=== PATIENT | female | born 1975 | race Caucasian/White ===

== ENCOUNTER 2018-04-29 18:32 | Observation (INO) | payer OTHER, SELFPAY ==
[2018-04-29 18:33] VITALS: BP 149/79; PULSE 85; RESP 18; TEMP 37.2; O2SAT 97; BMI 21.1
--- NOTE | 2018-04-29 19:18 | CT_ITS ---
STUDY: CT CHEST WITHOUT CONTRAST REASON FOR EXAM: Female, 43 years old. Left-sided rib pain status post fall. RADIATION DOSAGE (If Supplied By Facility): CTDIvol = ( 6.43 ) mGy, DLP = ( 265.19 ) mGycm TECHNIQUE: Transaxial imaging was performed without the administration of intravenous contrast material. Individualized dose optimization techniques were used for this CT. COMPARISON: None. FINDINGS: Thyroid gland is normal. Unenhanced heart and pericardium are unremarkable. The aorta is normal in caliber. There is no mediastinal mass, adenopathy, or hematoma. There is no pleural effusion or pneumothorax. There is no pulmonary consolidation, interstitial or cystic disease. There is a 4 mm nonobstructing stone in the left kidney. There is a 1 mm nonobstructing stone in the right kidney. Infrarenal IVC filter is noted. Demonstrated abdomen is otherwise unremarkable. There is no evidence of acute fracture. There is partial resection of the left fourth rib posterolaterally, consistent with remote prior thoracotomy. CT/Chest without Contrast IMPRESSION: 1. No acute process. 2. Remote left thoracotomy. 3. Nonobstructing renal stones. Electronically Signed: Bibi Rodrigues MD at 20:17 EDT Tel , Service support ,
[2018-04-29] MEDS: Ondansetron 4 MG/2 ML Vial IV (19:24)
[2018-04-29] MEDS: morphine 8 MG/ML Syringe IV (19:24)
[2018-04-29 20:02] VITALS: BP 140/84; PULSE 77; RESP 22; O2SAT 98
[2018-04-29] MEDS: Mag Hydrox/Al Hydrox/Simeth 30 ML UDC PO (20:05)
[2018-04-29] MEDS: diazePAM 5 MG Tablet PO (20:42)
--- NOTE | 2018-04-29 21:28 | EKG12_ITS ---
Test Reason : BACK PAIN Blood Pressure : / mmHG Vent. Rate : 076 BPM Atrial Rate : 076 BPM P-R Int : 124 ms QRS Dur : 070 ms QT Int : 378 ms P-R-T Axes : 041 073 080 degrees QTc Int : 425 ms Normal sinus rhythm Normal ECG Confirmed by JAYME MUNGUIA, ALYSSA ([id number]), sports editor ADRIEL BRUNNER ([id number]) on 05/01/2018 3:42:04 PM Referred By: KENNEY Confirmed By:ALYSSA DELACRUZ MD
[2018-04-29] MEDS: fentaNYL 100 MCG/2 ML Ampul 50 MCG IV (21:37)
[2018-04-29 21:38] LABS: Absolute Lymphocyte Count 1.73 X10^3/ul (0.83-4.51); Absolute Neutrophil Count 6.3 X10^3/uL (2.0-7.7); Basophil# 0.02 X10^3/uL; Basophil% 0.2 % (0-1); Eosinophil# 0.22 X10^3/uL; Eosinophils% 2.4 % (0-5); Hematocrit 43.3 % (37-47); Hemoglobin 14.6 g/dl (12.0-15.0); Lymphocyte # 1.73 X10^3/ul (4.0); Lymphocyte % 19.2 % (19-41); Mean Corp Hgb Conc 33.7 g/gl (32-36); Mean Corpuscular Hgb 30.2 pg (27.0-32.0); Mean Corpuscular Volume 89.6 fL (81-99); Monocyte# 0.72 X10^3/uL; POSITIVE COUNT NO; POSITIVE DIFFERENTIAL NO; POSITIVE MORPHOLOGY NO; Platelet Count 286 K/mm3 (150-450); RBC Distribution Width CV 12.4 % (11.6-14.6); RBC Distribution Width SD 40.5 fl (35.1-43.9); Red Blood Count 4.83 M/mm3 (4.2-5.4)
[2018-04-29 21:40] VITALS: BP 123/82; PULSE 87; RESP 18; O2SAT 99
[2018-04-29 21:58] LABS: Anion Gap 10 (5-15); BUN 23 mg/dL (7-18); BUN/Creat Ratio 43.3 RATIO (10-20); Chloride 110 mmol/L (98-107); Creatinine, Serum 0.53 mg/dL (0.55-1.02); EST Glomerular Filtration Rate 133 mL/min (>60); Est Glom Filt Rate - Afr Amer 161 mL/min (>60); Estimated Creatinine Clearance 132.31 ml/min; Glucose 93 mg/dL (74-106); Potassium 4.9 mmol/L (3.5-5.1); Sodium Level 141 mmol/L (136-145)
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
[2018-04-29] MEDS: Morphine 4 MG/ML Syringe IV (22:49)
[2018-04-29 22:53] VITALS: BP 133/75; PULSE 82; RESP 16; O2SAT 98
--- NOTE | 2018-04-29 23:14 | ED.DCSUM_ITS ---
- ER Visit Summary Date of Service: 04/29/18 Chief Complaint: Muscle spasm History of Present Illness: The patient is a 43 F presenting with left chest wall pain which has been ongoing for the past week. A week ago she fell hitting her left side on a counter. She has been seen by her primary care physician and chiropractor throughout the week. Yesterday she sneezed and the pain became much more severe. She went to urgent care yesterday and was given a muscle relaxer. She states she cannot tolerate the pain. With any movement the pain becomes very severe. She denies other complaints. Physical Examination: Vitals are stable. Patient is afebrile. Alert no acute distress. HEENT exam is unremarkable. Neck is supple. Lungs are clear and equal bilaterally. Left lateral mid chest wall tenderness with no crepitus Heart is regular rate and rhythm. Abdomen is soft nontender nondistended. Extremities are unremarkable. Skin is warm and dry. No rash No focal neurologic deficit. Remainder of exam is unremarkable. Emergency Department Course and Treatment: Patient was given morphine, Zofran IV. She had minimal improvement. She was given Valium p.o. She is now also complaining of acid reflux symptoms. She was given a GI cocktail with improvement. She continues to have pain and was given fentanyl IV. CT chest shows no acute process. Remote left thoracotomy. EKG is sinus rate of 76. Patient's pain is controlled only when she remains still. With any movement her pain becomes severe. Will discuss with the hospitalist for admission. Disposition: Observation Impression: Intractable chest wall pain, muscle spasm This note was generated with [employer] dictation software. It may contain incorrect words, spelling, and punctuation that were not noted in review of the chart prior to signing ED Disposition - Plan for ED Patient: Chief Complaint: Chest Other
[2018-04-29] MEDS: Famotidine 20 MG Tablet PO (23:27)
[2018-04-29] MEDS: Lidocaine 5% Patch 1 PATCH TOPICAL (23:27)
[2018-04-30] VITALS (7 sets, daily range): BP systolic 112–136; BP diastolic 66–91; PULSE 67–82; RESP 16–18; TEMP 36.1–36.8; O2SAT 97–100; BMI 21.1
[2018-04-30] MEDS: Morphine 4 MG/ML Syringe IV ×7 (00:57→23:40)
[2018-04-30] MEDS: CYCLOBENZAPRINE HCL 5 MG TABLET PO (00:58)
[2018-04-30] MEDS: 0.9% NaCl Peripheral Flush Adult/Peds IV ×5 (03:35→20:39)
[2018-04-30] MEDS: Ondansetron 4 MG/2 ML Vial IV (03:35)
[2018-04-30] MEDS: DiphenhydrAMINE 25 MG Capsule PO ×3 (05:28→18:19)
[2018-04-30] MEDS: Methocarbamol 500 MG Tablet 1000 MG PO (05:28)
[2018-04-30 06:13] LABS: Absolute Lymphocyte Count 1.49 X10^3/ul (0.83-4.51); Absolute Neutrophil Count 3.6 X10^3/uL (2.0-7.7); Basophil# 0.02 X10^3/uL; Basophil% 0.3 % (0-1); Eosinophil# 0.11 X10^3/uL; Eosinophils% 1.9 % (0-5); Hematocrit 40.4 % (37-47); Hemoglobin 13.9 g/dl (12.0-15.0); Lymphocyte # 1.49 X10^3/ul (4.0); Lymphocyte % 25.7 % (19-41); Mean Corp Hgb Conc 34.4 g/gl (32-36); Mean Corpuscular Hgb 30.9 pg (27.0-32.0); Mean Corpuscular Volume 89.8 fL (81-99); Mean Platelet Vol. 9.7 fl (6.2-12.0); Monocyte# 0.52 X10^3/uL; Neutrophil # 3.64 X10^3/uL (2.7-7.7); Neutrophil % 62.8 % (47-70); Platelet Count 252 K/mm3 (150-450); RBC Distribution Width CV 12.4 % (11.6-14.6); RBC Distribution Width SD 39.8 fl (35.1-43.9); White Blood Count 5.8 K/mm3 (4.4-11.0)
[2018-04-30 06:21] LABS: POSITIVE COUNT NO; POSITIVE DIFFERENTIAL NO; POSITIVE MORPHOLOGY NO
[2018-04-30 06:30] LABS: Anion Gap 9 (5-15); BUN 15 mg/dL (7-18); BUN/Creat Ratio 27.4 RATIO (10-20); Calcium,Total 8.6 mg/dL (8.5-10.1); Chloride 106 mmol/L (98-107); Creatinine, Serum 0.55 mg/dL (0.55-1.02); EST Glomerular Filtration Rate 129 mL/min (>60); Est Glom Filt Rate - Afr Amer 156 mL/min (>60); Estimated Creatinine Clearance 127.21 ml/min; Glucose 86 mg/dL (74-106); Potassium 3.6 mmol/L (3.5-5.1); Sodium Level 139 mmol/L (136-145)
[2018-04-30] MEDS: Senna Tablet 1 TABLET PO ×3 (10:34→20:55)
[2018-04-30] MEDS: Labetalol 100 MG Tablet PO (10:34)
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
[2018-04-30] MEDS: Baclofen 10 MG Tablet PO ×2 (11:52→20:55)
[2018-04-30] MEDS: Ketorolac 30 MG/ML Syringe IV (11:52)
[2018-04-30] MEDS: Lidocaine 5% Patch 1 PATCH TOPICAL (13:09)
[2018-04-30] MEDS: Ketorolac 15 MG/ML Vial IV (18:18)
[2018-05-01] MEDS: Ketorolac 15 MG/ML Vial IV ×2 (00:31→06:54)
[2018-05-01] MEDS: DiphenhydrAMINE 25 MG Capsule PO ×2 (00:32→06:54)
[2018-05-01] MEDS: 0.9% NaCl Peripheral Flush Adult/Peds IV ×3 (00:32→06:55)
[2018-05-01] MEDS: Morphine 4 MG/ML Syringe IV (05:14)
[2018-05-01] MEDS: Baclofen 10 MG Tablet PO (05:14)
[2018-05-01 05:26] VITALS: BP 116/63; PULSE 81; RESP 16; TEMP 37; O2SAT 97
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
--- NOTE | 2018-05-01 08:21 | DCINST_ITS ---
- Discharge Diagnoses Current Active Problems: Current Active and Chronic Problems (Last Updated 04/28/18 @ 17:38 by Katia Mayberry) HTN (hypertension) (Chronic) Reason(s) for Visit for Discharge Instructions: Left sided chest pain You will use the following diet at home:: Regular Your food should be the consistency of: Regular Your liquids should be the consistency of: Regular/Thin Discharge Activity: Return to Normal Activity Additional Instructions: Ok to use a heating pad as needed for pain relief. Do not drive when taking narcotic medications. Continue to remain active. Allergies/Adverse Reactions: Allergies hydromorphone HCl [From Dilaudid] Allergy (Verified 04/29/18 18:36) Rash sulfamethoxazole [From Bactrim] Allergy (Verified 04/29/18 18:36) Rash trimethoprim [From Bactrim] Allergy (Verified 04/29/18 18:36) Rash Medications to take at Discharge Labetalol HCl 100 mg PO BID 07/14/14 cyclobenzaprine 5 mg tablet 5 mg PO TID PRN 10 Days #30 tab 04/28/18 multivitamin capsule 1 cap PO DAILY 04/28/18 psyllium husk 0.52 gram capsule 0.52 g PO DAILY 04/28/18 Omeprazole 40 mg PO DAILY PRN PRN 04/30/18 Baclofen [Lioresal] 10 mg PO TID #20 tab 05/01/18 Diclofenac [Voltaren] 50 mg PO BIDCM #20 tab 05/01/18 Docusate Sodium [Colace] 100 mg PO BID PRN PRN #20 cap 05/01/18 Oxycodone [Oxyir] 5 mg PO Q4H PRN PRN 3 Days #10 tablet 05/01/18 Senna [Senokot] 1 tab PO BID PRN #30 tab 05/01/18 The following prescriptions were given: Oxycodone [Oxyir] 5 mg PO Q4H PRN PRN 3 Days #10 tablet PRN Reason: Severe Pain (6-05/24) Docusate Sodium [Colace] 100 mg PO BID PRN PRN #20 cap PRN Reason: Constipation Diclofenac [Voltaren] 50 mg PO BIDCM #20 tab Senna [Senokot] 1 tab PO BID PRN #30 tab PRN Reason: Constipation Baclofen [Lioresal] 10 mg PO TID #20 tab Primary Care Physician: Juanito Swartz MD [Primary Care Provider] - Please follow up with your Primary Care Physician in: within 2 weeks of discharge Test Results: Test results from this visit will be discussed in further detail at your follow- up appointment, if applicable. Proposed Discharge Date: 05/01/18
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
[2018-05-01 09:51] VITALS: BP 125/76; PULSE 80; RESP 16; TEMP 36.9; O2SAT 100
[2018-05-01] MEDS: oxyCODONE 5 MG Tablet PO (09:52)
[2018-05-01] MEDS: Docusate Sodium 100 MG Capsule PO (09:52)
[2018-05-01] MEDS: Labetalol 100 MG Tablet PO (09:53)
== END 2018-05-01 12:00 | disposition home or self-care (01) ==
LOC: ED 19:33 → MS2 23:00
PROVIDERS: Admitting Provider Hospitalist; Emergency Provider Emergency Medicine; Family Provider Family Medicine; PCP Family Medicine; Visit Provider Internal Medicine
DX: S20.212A Contusion of left front wall of thorax, initial encounter (principal); W19.XXXA Unspecified fall, initial encounter; Y93.9 Activity, unspecified; Y92.9 Unspecified place or not applicable; I10 Essential (primary) hypertension; K21.9 Gastro-esophageal reflux disease without esophagitis; Z79.899 Other long term (current) drug therapy; M62.838 Other muscle spasm
CPT/HCPCS: 36415; 71250; 80048; 85025; 93005; 96374; 96375; 96376; 99218; 99282; A4216; G0378; J2405

== ENCOUNTER 2018-11-11 09:56 | Emergency (ER) | payer OTHER, SELFPAY ==
[2018-11-11 09:57] VITALS: BP 157/82; PULSE 80; RESP 16; TEMP 37.3; O2SAT 95; BMI 21.3
--- NOTE | 2018-11-11 10:21 | CT_ITS ---
STUDY: CT BRAIN WITHOUT CONTRAST REASON FOR EXAM: Female, 43 years old. Status post fall one day ago pain RADIATION DOSAGE (If Supplied By Facility): CTDIvol = ( 44.99 ) mGy, DLP = ( 779.24 ) mGycm TECHNIQUE: Transaxial CT imaging of the brain was performed without administration of intravenous contrast material. Individualized dose optimization techniques were used for this CT. COMPARISON: No relevant priors. FINDINGS: Normal soft tissue structures. Normal calvarium. Normal size ventricles and extra-axial spaces for the patient's age. Normal white matter tracts of the cerebral hemispheres. Normal basal ganglia and thalami. Normal brainstem. Normal cerebellum. There is no intracranial hemorrhage. There are no findings of an acute ischemic infarction. Normal visualized paranasal sinuses. CT/Brain/Head without Contrast IMPRESSION: Normal unenhanced CT scan of the brain. Electronically Signed: Brenda Yun MD at 11:33 EDT Tel , Service support ,
--- NOTE | 2018-11-11 10:22 | CT_ITS ---
STUDY: CT CHEST WITHOUT CONTRAST REASON FOR EXAM: Female, 43 years old. Status post fall 1 day ago with pain RADIATION DOSAGE (If Supplied By Facility): CTDIvol = ( 8.99 ) mGy, DLP = ( 283.04 ) mGycm TECHNIQUE: Transaxial imaging was performed without the administration of intravenous contrast material. Multiplanar coronal and sagittal images were reformatted. Individualized dose optimization techniques were used for this CT. COMPARISON: CT chest April 29, 2018 July 23, 2018 shoulder x-ray FINDINGS: There is no focal consolidation pleural effusion pulmonary edema pneumothorax. There may be trace lingular atelectasis and/or scarring. There is no demonstrated pleural abnormality. There is visualized coronary calcification. This postoperative change within the mediastinum posterior to the aortic arch. Normal mediastinum. Normal hilar regions. Normal unenhanced pulmonary arteries. Normal aorta arch and descending thoracic aorta. Again noted is a defect within the left fourth rib. There is stable adjacent mild pleural thickening. There is a focal nondisplaced fracture left rib 9. There is an old fracture left rib 11 posteriorly. There is no demonstrated abnormality of the visualized upper abdomen. CT/Chest without Contrast IMPRESSION: Coronary artery calcification. Postoperative change in the left upper chest with irregularity of the left fourth rib stable since prior study. Old fracture of the posterior aspect of the left 11th rib. Age indeterminate possibly more recent fracture the posterior aspect of left rib 9. There is no evidence of focal infiltrate or pneumothorax or pulmonary contusion. Electronically Signed: Brenda Yun MD at 11:46 EDT Tel , Service support ,
--- NOTE | 2018-11-11 10:24 | ED.VISSUMM ---
- ER Visit Summary Date of Service: 11/11/18 Chief Complaint: Fall History of Present Illness: The patient is a 43 F who slipped on carpet last evening and fell down her basement steps on her left side. Patient complains of pain to the left lateral ribs and a mild headache. Patient last year had a left rib contusion and developed severe muscle spasms over the area. She required hospitalization for pain control at that time. She states she is starting to feel the muscle spasm again. Physical Examination: Vital signs are grossly unremarkable. Patient sitting upright in bed no acute distress. Head neck examination was no obvious external sign of trauma. There is no focal C-spine tenderness. Heart is regular rate and rhythm. Lungs sounds are clear. She has reproducible left lateral rib tenderness. Abdomen is soft nontender. Neuro exam reveals no focal deficits. Test Results: CT head is unremarkable. CT of the chest shows an old fracture the posterior aspect of the left 11th rib. There is an age indeterminate, possibly more recent, fracture of the posterior aspect of the left ninth rib. No pneumothorax. Emergency Department Course and Treatment: Test results were discussed with patient and at bedside. Patient was admitted last year for similar and ultimately was controlled with oxycodone, Voltaren, and baclofen. She was given that same medication regimen here and given a prescription for the same. Patient will also be given a prescription for stool softener. Treatment Plan: [] Disposition: Discharge Impression: Left rib contusion This note was generated with [employer] dictation software. It may contain incorrect words, spelling, and punctuation that were not noted in review of the chart prior to signing ED Disposition - Plan for ED Patient: Referrals: Juanito Swartz MD [Primary Care Provider] -
[2018-11-11] MEDS: oxyCODONE 5 MG Tablet PO ×2 (10:40→12:27)
[2018-11-11] MEDS: Baclofen 10 MG Tablet PO (11:26)
--- NOTE | 2018-11-11 11:59 | ED.DEP ---
ED Disposition - Plan for ED Patient: Disposition: Home or Assisted Living Instructions: ED Contusion Vs Minor Fx Rib Prescriptions: Oxycodone [Oxyir] 5 mg PO Q6H PRN PRN 3 Days #14 tablet PRN Reason: Pain Baclofen 10 mg PO TID PRN PRN #20 tablet PRN Reason: Spasms Docusate Sodium [Colace] 100 mg PO BID PRN PRN #20 capsule PRN Reason: Constipation Diclofenac [Voltaren] 50 mg PO BIDCM PRN #20 tablet PRN Reason: Pain Referrals: Juanito Swartz MD [Primary Care Provider] - 1 Week
[2018-11-11 12:46] VITALS: PULSE 67; RESP 18; O2SAT 99
== END 2018-11-11 12:47 | disposition home or self-care (01) ==
PROVIDERS: Emergency Provider Emergency Medicine; Family Provider Family Medicine; PCP Family Medicine
DX: S20.212A Contusion of left front wall of thorax, initial encounter (principal); I10 Essential (primary) hypertension; K21.9 Gastro-esophageal reflux disease without esophagitis; Z86.73 Personal history of transient ischemic attack (TIA), and cerebral infarction without residual deficits; W10.9XXA Fall (on) (from) unspecified stairs and steps, initial encounter; Y93.01 Activity, walking, marching and hiking; Y92.008 Other place in unspecified non-institutional (private) residence as the place of occurrence of the external cause; Y99.8 Other external cause status
CPT/HCPCS: 70450; 71250; 99283